=== PATIENT | female | born 1945 | race American Indian/Alaskan Native ===

== ENCOUNTER 2017-08-10 07:49 | Day surgery (SDC) | payer BC ==
[2017-08-10 08:45] VITALS: BMI 26.2
[2017-08-10 09:10] VITALS: O2SAT 100
[2017-08-10] MEDS ORDERED: Propofol 10 mg/ml Inj (20 ML) ONE (09:58)
--- NOTE | 2017-08-10 09:58 | CP.SDSHP ---
Same Day Surgery H & P - History Proposed Procedure: colonoscopy Pre-Op Diagnosis: Sigmoid obstruction, s/p resection and diverting ileostomy - Previous Medical/Surgical History Cardiac: Hypertension, Other (hyperlipidemia, ) Endocrine/Metabolic: Diabetes Misc: Other (Diverticulitis with Sigmoid stricture/inflammatory mass, ) Previous Surgical History: Emergency sigmoid resection and ileostomy. Lap Cholecystectomy. CECIL/BSO - Allergies Allergies: Allergies Penicillins Allergy (Intermediate, Verified 04/21/17 13:17) ITCHING - Physical Exam Vital Signs: Vital Signs 08/10/17 08:53 Temperature 97.6 F Pulse Rate 67 Respiratory 16 Rate Blood Pressure 106/57 L O2 Sat by Pulse 100 Oximetry Mental Status: Alert & Oriented x3 Neuro: WNL Heart: WNL Lungs: WNL GI: Other (RLQ ileostomy and midline incision well healed) - Impression Impression: Diverticulitis with emergency sigmoid resection/ileostomy Pt. Evaluated Today:Candidate for Anesthesia & Procedure: Yes - Date & Time Date: 08/10/17 Time: 10:00 Short Stay Discharge - Short Stay Discharge Admitting Diagnosis/Reason for Visit: DIVERTICULOSIS OF LARGE INT / PERSONAL HISTORY OF Disposition: HOME/ ROUTINE
[2017-08-10 10:46] VITALS: TEMP 97.1
[2017-08-10 11:50] VITALS: BP 125/52; PULSE 56; RESP 14
== END 2017-08-10 11:46 | disposition home or self-care (01) ==
LOC: C.ENDO 07:49
PROVIDERS: ATTEND Internal Medicine Gastroenterology
DX: K91.89 Other postprocedural complications and disorders of digestive system (principal); Y83.2 Surgical operation with anastomosis, bypass or graft as the cause of abnormal reaction of the patient, or of later complication, without mention of misadventure at the time of the procedure; K57.32 Diverticulitis of large intestine without perforation or abscess without bleeding; Z86.010 Personal history of colon polyps; E11.9 Type 2 diabetes mellitus without complications; E78.5 Hyperlipidemia, unspecified; I10 Essential (primary) hypertension; Z88.0 Allergy status to penicillin; K64.1 Second degree hemorrhoids
CPT/HCPCS: 45378; J2704

== ENCOUNTER 2017-10-25 05:54 | Day surgery (SDC) | payer MEDICARE, BC ==
[2017-10-25] MEDS ORDERED: Etomidate 20 mg/10ml Inj IV ONE (07:44)
[2017-10-25] MEDS ORDERED: Lactated Ringer's 1,000 ML IV ONE (07:45)
[2017-10-25] MEDS ORDERED: Propofol 10 mg/ml Inj (20 ML) ONE (07:51)
--- NOTE | 2017-10-25 08:49 | PCM.SURG1 ---
Surgeon's Initial Post Op Note - Surgeon's Notes Surgeon: Dr. Vaz [employer] Tobacco Processing Supervisor: Rae Norton, PGY2 Pre-Operative Diagnosis: Sigmoid stricture s/p colectomy and diverticulitis Operative Findings: stricture of the sigmoid colon at the prior anastamosis site , dilated to 58Fr by the end of the case Post-Operative Diagnosis: same Operation Performed: Rigid sigmoidoscopy with dilation of sigmoid at approximately 8cm Specimen/Specimens Removed: none Estimated Blood Loss: EBL {In ML}: 1 Date of Surgery/Procedure: 10/25/17 Time of Surgery/Procedure: 08:00
[2017-10-25 11:59] VITALS: BP 112/66; PULSE 67; RESP 18; TEMP 97.5; O2SAT 100
--- NOTE | 2017-10-25 12:45 | OP ---
PROCEDURE DATE: 10/25/2017 PREOPERATIVE DIAGNOSES: Anastomotic stenosis of low anterior resection, stenosis of anus and rectum. PROCEDURE CARRIED OUT: Rigid sigmoidoscopy and dilatation to 60 Estonian (2 cm with Gaines dilators). SURGEON: Etienne Vaz Jr., MD SCHOOL CLEANER: Dr. Norton. ANESTHESIOLOGIST: Mr. Cope. TYPE OF ANESTHESIA: Sedation converted to general anesthesia. INDICATIONS AND PROCEDURE: The patient is a 71-year-old woman who previously underwent a low anterior resection with ileostomy. Attempts were made at colonoscopy. There was a pinpoint hole and plan today was to attempt to dilate this. Initially I could not pass my finger through the anastomosis, but there was a pinhole opening. This was progressively dilated through a rigid sigmoidoscope and the anastomosis was approximately at 8 cm. Initially we passed a suction catheter through it and my finger. Then, we progressively dilated this using Gaines dilators up to 60-Estonian, which is 2 cm in size. At this point, I was able to pass my finger through the anastomosis. My recommendation is the patient undergo colonoscopy prior to closure of her ileostomy and she may need dilatation again, but at least we were able to establish a decent channel and this should be satisfactory. Etienne Vaz Jr., MD cc: MD Ameya Fraire MD
== END 2017-10-25 11:14 | disposition home or self-care (01) ==
LOC: C.SDS 05:54
PROVIDERS: ATTEND Surgery Vascular Surgery
DX: K62.4 Stenosis of anus and rectum (principal); K91.89 Other postprocedural complications and disorders of digestive system; Z87.19 Personal history of other diseases of the digestive system; Z90.49 Acquired absence of other specified parts of digestive tract; Z93.2 Ileostomy status; Y83.2 Surgical operation with anastomosis, bypass or graft as the cause of abnormal reaction of the patient, or of later complication, without mention of misadventure at the time of the procedure
CPT/HCPCS: 45910; J2001; J2704; J3010; J7120

== ENCOUNTER 2017-11-01 07:44 | Inpatient (IN) | payer MEDICARE, BC ==
[2017-11-01] MEDS ORDERED: Midazolam 2 MG/2 ML VIAL ONE (12:17)
[2017-11-01] MEDS ORDERED: Propofol 10 mg/ml Inj (20 ML) ONE (12:17)
[2017-11-01] MEDS ORDERED: Etomidate 20 mg/10ml Inj IV ONE (12:24)
[2017-11-01] MEDS ORDERED: metroNIDAZOLE IV 500 mg/100 ml 500 MG/100 ML BAG ONE (12:31)
[2017-11-01] MEDS ORDERED: ceFAZolin 1 gm in NS 0 GM/0 ML BAG IVPB ONE (12:31)
[2017-11-01] MEDS ORDERED: Ciprofloxacin 400mg/200ml D5W 400 MG/200 ML BAG IVPB ONE ×2 (12:33→20:00)
[2017-11-01] MEDS ORDERED: Neostigmine Methylsulfate 3mg/3ml Syringe IV ONE (13:40)
[2017-11-01] MEDS ORDERED: Oxycodone/Acetaminophen 5/325 mg Tab PO PRN (14:00)
[2017-11-01] MEDS ORDERED: Acetaminophen IV 1,000 MG in Premixed IV 1 EA IV PRN (14:05)
[2017-11-01] MEDS: HYDROmorphone 0.5 mg/0.5 ml ISec IVP PRN ×5 (14:17→15:29)
--- NOTE | 2017-11-01 14:17 | PCM.SURG1 ---
Surgeon's Initial Post Op Note - Surgeon's Notes Surgeon: Dr. Vaz Marine Safety Officer: Dr. Olivera PGy3; Pardeep Campo OMS III Type of Anesthesia: General Endo Anesthesia Administered By: Lenny Pre-Operative Diagnosis: Rectal Stenosis, Ileostomy Operative Findings: same Post-Operative Diagnosis: same Operation Performed: Rigid sigmoidoscopy with dilation. Closure of loop ileostomy. Small bowel resection Specimen/Specimens Removed: small bowel Estimated Blood Loss: EBL {In ML}: 10 Blood Products Given: N/A Drains Used: No Drains Post-Op Condition: Good Date of Surgery/Procedure: 11/01/17 Time of Surgery/Procedure: 14:17
[2017-11-01] MEDS ORDERED: Lactated Ringer's 1,000 ML IV ONE ×2 (15:30)
[2017-11-01] MEDS ORDERED: metroNIDAZOLE IV 500 mg/100 ml 500 MG/100 ML BAG IVPB ONE (20:00)
[2017-11-01] MEDS: Lactated Ringer's 1,000 ML IV SCH (21:35)
[2017-11-01 21:56] VITALS: RESP 20
[2017-11-02] MEDS: Lactated Ringer's 1,000 ML IV SCH (00:15)
[2017-11-02] MEDS: HYDROmorphone 0.5 mg/0.5 ml ISec IVP PRN ×5 (00:18→22:35)
[2017-11-02 07:01] LABS: BASO % 0.4 % (0.0-2.0); EOS % 0.6 % (0.0-4.0); HEMOGLOBIN 9.5 g/dL (11.0-16.0); LYMPH # 1.1 K/uL (1.0-4.3); MEAN CELL VOLUME 89.1 fL (81.0-99.0); MEAN CORPUSCULAR HGB CONC 33.7 g/dL (33.0-37.0); MEAN PLATELET VOLUME 10.1 fL (7.2-11.7); MONO # 0.4 K/uL (0.0-0.8); NEUT # 5.8 K/uL (1.8-7.0); RBC 3.17 Mil/uL (3.80-5.20); RED CELL DISTRIBUTION WIDTH 12.8 % (11.5-14.5); WHITE BLOOD COUNT 7.5 K/uL (4.8-10.8)
--- NOTE | 2017-11-02 07:11 | OP ---
PROCEDURE DATE: 11/01/2017 PREOPERATIVE DIAGNOSIS: Status post ileostomy. PROCEDURE CARRIED OUT: Sigmoidoscopy, rectal dilatation with Gaines dilators, and closure of loop ileostomy, small bowel resection with anastomosis. SURGEON: Etienne Vaz Jr., MD GRAPHIC ILLUSTRATOR: Dr. Olivera. ANESTHESIA ADMINISTERED BY: Dr. Galvez. DESCRIPTION OF PROCEDURE: The patient is an older middle aged woman with a history of severe diverticulitis disease, underwent low anterior resection, and need a stapled anastomosis, who past week underwent rectal dilation to 60-Taiwanese. Today, she is re-admitted for closure. Prior to initiating the procedure, we carried out rectal dilatation and sigmoidoscopy again. At the beginning, I was easily able to place my finger through the anastomosis, but still I felt it was better to dilate this as large as we could, prior to reconnecting the ileostomy. After this has been carried out, the patient was in lithotomy position. This was carried out. We then placed the patient in a standard supine position, dissected out the small bowel that was coming up to the ileostomy, and anastomosed this in a [id number] fashion, placed it back in peritoneal cavity, closed the skin and fascia above this, and terminated the procedure. Blood loss to the procedure was less than 150 mL. The operation carried out was sigmoidoscopy, rectal dilatation, and two closure of loop ileostomies, small bowel resection with anastomosis. Etienne Vaz Jr., MD cc: Quin Spencer MD
[2017-11-02 07:28] LABS: ALBUMIN 3.2 g/dL (3.5-5.0); CALCIUM 8.6 mg/dl (8.6-10.4)
--- NOTE | 2017-11-02 09:09 | CP.PCM.PN ---
Subjective - Date & Time of Evaluation Date of Evaluation: 11/02/17 Time of Evaluation: 09:07 - Subjective Subjective: Surgery: Dr. Vaz Patient reports some pain to the incision site. She denies n/v/f/c. She has not been OOB this am. Per nursing no acute events overnight. Objective - Vital Signs/Intake and Output Vital Signs (last 24 hours): Temp Pulse Resp BP Pulse Ox 98.8 F 71 20 135/63 100 11/02/17 07:00 11/02/17 07:00 11/02/17 07:00 11/02/17 07:00 11/02/17 07:00 Intake and Output: 11/02/17 11/02/17 06:59 18:59 Intake Total 400 800 Output Total 650 600 Balance -250 200 - Medications Medications: Current Medications Enoxaparin Sodium (Lovenox) 40 mg SC DAILY [facility] Ferrous Sulfate (Feosol) 325 mg PO TID [facility] (Dorzolamide 2%/Timolol 0.5% [Cosopt 2%-0.5% Opht]) 1 drop OU HS [facility] (Valsartan/Hydrochlorothiazide [Diovan Hct 160-12.5 Mg Tab]) 1 tab PO DAILY [facility] Hydromorphone HCl (Dilaudid) 0.5 mg IVP Q3H PRN PRN Reason: Pain, moderate (4-7) Stop: 11/03/17 14:01 Last Admin: 11/02/17 05:05 Dose: 0.5 mg Acetaminophen (Ofirmev) 100 mls @ 400 mls/hr IV Q6 PRN PRN Reason: Pain, moderate (4-7) Stop: 11/02/17 14:06 Last Admin: 11/01/17 14:24 Dose: 200 mls Potassium Chloride/Dextrose/Sod Cl (Potassium Chl 20 Meq In D5-1/2ns) 1,000 mls @ 100 mls/hr IV .Q10H [facility] Latanoprost (Xalatan Opht) ml OU DAILY [facility] Ondansetron HCl (Zofran Inj) 4 mg IVP Q6 PRN PRN Reason: Nausea/Vomiting Oxycodone/Acetaminophen (Percocet 5/325 Mg Tab) 1 tab PO Q4 PRN PRN Reason: Pain, Mild (1-3) Stop: 11/04/17 14:01 Rosuvastatin Calcium (Crestor) 10 mg PO HS [facility] - Labs Labs: 11/02/17 06:47 11/02/17 06:47 - Constitutional Appears: Non-toxic, No Acute Distress - Head Exam Head Exam: ATRAUMATIC, NORMOCEPHALIC - Eye Exam Eye Exam: EOMI, Normal appearance - ENT Exam ENT Exam: Mucous Membranes Moist - Respiratory Exam Respiratory Exam: NORMAL BREATHING PATTERN. absent: Respiratory Distress - Cardiovascular Exam Cardiovascular Exam: REGULAR RHYTHM. absent: Tachycardia - GI/Abdominal Exam GI & Abdominal Exam: Soft, Tenderness (kobi-incisional, appropriate). absent: Guarding, Rebound - Extremities Exam Extremities Exam: Normal Inspection. absent: Calf Tenderness Assessment and Plan - Assessment and Plan (Free Text) Assessment: 71 y/o female s/p loop ileostomy closure POD1 Plan: -ok for CLD, sip slowly as tolerated -OOB today ambulating -PO pain medications -d/c wayne -restart home meds -ok for DVt chemoppx -incentive spirometry use -monitor for bowel function -seen and examined with Dr. Татьяна Henderson PGY3
[2017-11-02] MEDS ORDERED: Enoxaparin 40 mg Syringe SC SCH (10:00)
[2017-11-02] MEDS: Potassium Ch 20mEq in D5-1/2NS 1,000 ML IV SCH ×2 (10:15→18:52)
--- NOTE | 2017-11-02 11:59 | CP.PCM.CON ---
History of Present Illness - History of Present Illness History of Present Illness: Patient is post reversal of an ileostome. Previous surgery done monthe ago foe a divercular abscess. Patient went into CHF and renal failure post -op because ofd sepsis. Patient did well afdter this and so she was able to undeergo the procedure. Review of Systems - Constitutional Additional comments: Negative. - EENT Additional comments: Negative - Cardiovascular Additional comments: History of CHF. now resolved. - Respiratory Additional comments: No SOB. - Gastrointestinal Gastrointestinal: As Per HPI - Genitourinary Additional comments: Negative. - Reproductive: Female Reproductive:Female: Menopausal Past Patient History - Past Medical History & Family History Past Medical History?: Yes - Past Social History Smoking Status: Former Smoker Alcohol: None Home Situation {Lives}: With Family - CARDIAC Hx Cardiac Disorders: Yes Hx Congestive Heart Failure: Yes Hx Hypercholesterolemia: Yes Hx Hypertension: Yes - PULMONARY Hx Respiratory Disorders: Yes Other/Comment: HX: LEFT PLEURAL EFFUSION/ATELECTASIS-CHEST TUBE PLACED 04/2017-S /P ILEOSTOMY/COLON RESECTION - NEUROLOGICAL Hx Neurological Disorder: No - HEENT Hx HEENT Problems: Yes Hx Cataracts: Yes Hx Glaucoma: Yes - RENAL Hx Chronic Kidney Disease: Yes Hx Renal Failure: Yes - ENDOCRINE/METABOLIC Hx Endocrine Disorders: No Other/Comment: Prediabetes - HEMATOLOGICAL/ONCOLOGICAL Hx Blood Disorders: Yes Hx Anemia: Yes Hx Blood Transfusions: Yes Hx Blood Transfusion Reaction: No - INTEGUMENTARY Hx Dermatological Problems: No - MUSCULOSKELETAL/RHEUMATOLOGICAL Hx Musculoskeletal Disorders: No Hx Falls: No - GASTROINTESTINAL Hx Gastrointestinal Disorders: Yes Hx Bowel Surgery: Yes Hx Diverticulitis: Yes Hx Gall Bladder Disease: Yes (S/P Lap GB) Hx Gastroesophageal Reflux: Yes Hx Hemorrhoids: Yes Hx Ileostomy: Yes Other/Comment: Sigmoid stricture from diverticulosis, attempted colonoscopy 2016. h/o colonic polyps last full exam 2011. HX: SEVERE SIGMOID STRICTURE. HX: COLON RESECTION/ILEOSTOMY - GENITOURINARY/GYNECOLOGICAL Hx Genitourinary Disorders: Yes Other/Comment: HX: FIBROID UTERUS. h/o uti. treated by with bactrim. cleared by dr. bennett no further orders given - PSYCHIATRIC Hx Psychophysiologic Disorder: No Hx Substance Use: No - SURGICAL HISTORY Hx Surgeries: Yes Hx Cataract Extraction: Yes (BILAT.) Hx Cholecystectomy: Yes Hx Eye Surgery: Yes (FOR GLUCOMA) Hx Hysterectomy: Yes Other/Comment: HX:PARTIAL COLECTOMY/ ILEOSTOMY. HX: CYSTO WITH STENT PLACED PRIOR TO COLON RESECTION PRECAUTION SIGMOIDOSCOPY - ANESTHESIA Hx Anesthesia: Yes Hx Anesthesia Reactions: No Hx Malignant Hyperthermia: No Has any member of the family had a problem w/ anesthesia?: No Meds Allergies/Adverse Reactions: Allergies Allergy/AdvReac Type Severity Reaction Status Date / Time Penicillins Allergy Intermediate ITCHING Verified 04/21/17 13:17 - Medications Medications: Current Medications Dorzolamide HCl (Trusopt) 0 ml OU HS [facility] Ferrous Sulfate (Feosol) 325 mg PO TID [facility] Last Admin: 11/02/17 10:04 Dose: 325 mg Heparin Sodium (Porcine) (Heparin) 5,000 units SC Q8 [facility] Hydrochlorothiazide (Microzide) 12.5 mg PO DAILY [facility] Last Admin: 11/02/17 10:04 Dose: 12.5 mg Hydromorphone HCl (Dilaudid) 0.5 mg IVP Q3H PRN PRN Reason: Pain, moderate (4-7) Stop: 11/03/17 14:01 Last Admin: 11/02/17 10:01 Dose: 0.5 mg Acetaminophen (Ofirmev) 100 mls @ 400 mls/hr IV Q6 PRN PRN Reason: Pain, moderate (4-7) Stop: 11/02/17 14:06 Last Admin: 11/01/17 14:24 Dose: 200 mls Potassium Chloride/Dextrose/Sod Cl (Potassium Chl 20 Meq In D5-1/2ns) 1,000 mls @ 100 mls/hr IV .Q10H [facility] Last Admin: 11/02/17 10:15 Dose: 100 mls/hr Latanoprost (Xalatan Opht) 0 ml OU HS [facility] Losartan Potassium (Cozaar) 100 mg PO DAILY [facility] Last Admin: 11/02/17 10:04 Dose: 100 mg Ondansetron HCl (Zofran Inj) 4 mg IVP Q6 PRN PRN Reason: Nausea/Vomiting Oxycodone/Acetaminophen (Percocet 5/325 Mg Tab) 1 tab PO Q4 PRN PRN Reason: Pain, Mild (1-3) Stop: 11/04/17 14:01 Rosuvastatin Calcium (Crestor) 10 mg PO HS [facility] Timolol Maleate (Timoptic 0.5% Ophth Soln) 0 drop OU BID [facility] Last Admin: 11/02/17 11:00 Dose: Not Given Physical Exam - Constitutional Appears: Non-toxic, No Acute Distress - Head Exam Head Exam: ATRAUMATIC, NORMAL INSPECTION, NORMOCEPHALIC - Eye Exam Pupil Exam: PERRL - ENT Exam ENT Exam: Mucous Membranes Moist, Normal External Ear Exam - Neck Exam Neck exam: Positive for: Full Rom - Respiratory Exam Respiratory Exam: Clear to Auscultation Bilateral, NORMAL BREATHING PATTERN - Cardiovascular Exam Cardiovascular Exam: REGULAR RHYTHM, +S1, +S2 - GI/Abdominal Exam GI & Abdominal Exam: Hypoactive Bowel Sounds - Rectal Exam Rectal Exam: Deferred - Extremities Exam Extremities exam: Positive for: full ROM - Back Exam Back exam: FULL ROM, NORMAL INSPECTION - Neurological Exam Neurological exam: Alert, Oriented x3 - Psychiatric Exam Psychiatric exam: Normal Affect, Normal Mood - Skin Skin Exam: Dry, Intact, Warm Results - Vital Signs Recent Vital Signs: Last Vital Signs Temp 98.8 F 11/02/17 07:00 Pulse 71 11/02/17 07:00 Resp 20 11/02/17 07:00 BP 135/63 11/02/17 07:00 Pulse Ox 100 11/02/17 07:00 - Labs Result Diagrams: 11/02/17 06:47 11/02/17 06:47 Labs: Laboratory Results - last 24 hr 11/01/17 11/02/17 11/02/17 12:17 06:47 06:47 WBC 7.5 RBC 3.17 L Hgb 9.5 L Hct 28.3 L MCV 89.1 D MCH 30.0 MCHC 33.7 RDW 12.8 Plt Count 243 D MPV 10.1 Neut % (Auto) 78.0 H Lymph % (Auto) 15.0 L [place] % (Auto) 6.0 Eos % (Auto) 0.6 Baso % (Auto) 0.4 Neut # (Auto) 5.8 Lymph # (Auto) 1.1 Republic # (Auto) 0.4 Eos # (Auto) 0.0 Baso # (Auto) 0.0 Sodium 143 Potassium 3.7 Chloride 113 H Carbon Dioxide 19 L Anion Gap 15 BUN 26 H Creatinine 1.8 H Est GFR ( Amer) 34 Est GFR (Non-Af Amer) 28 Random Glucose 96 Calcium 8.6 Total Bilirubin 0.5 AST 23 ALT 21 Alkaline Phosphatase 48 Total Protein 6.3 Albumin 3.2 L Globulin 3.1 Albumin/Globulin Ratio 1.0 Blood Type A NEGATIVE Antibody Screen Positive Antibody Identification Anti D Assessment & Plan - Assessment and Plan (Free Text) Assessment: Assessment: S/P reversal of ileostome. Prediabetes. HX of CHF and renal failure. Plan: Plan: Continue present treatment.
[2017-11-02] MEDS: Dorzolamide 2% Opht Sol 10ml OU SCH (22:23)
[2017-11-02] MEDS: Latanoprost 2.5 ml Opht Soln OU SCH (22:23)
[2017-11-03] MEDS: HYDROmorphone 0.5 mg/0.5 ml ISec IVP PRN ×2 (06:35→13:54)
[2017-11-03 07:14] LABS: HEMOGLOBIN 9.2 g/dL (11.0-16.0); MEAN CORPUSCULAR HEMOGLOBIN 29.6 pg (27.0-31.0); MEAN CORPUSCULAR HGB CONC 33.2 g/dL (33.0-37.0); MEAN PLATELET VOLUME 10.3 fL (7.2-11.7); RBC 3.1 Mil/uL (3.80-5.20); RED CELL DISTRIBUTION WIDTH 12.7 % (11.5-14.5); WHITE BLOOD COUNT 7.4 K/uL (4.8-10.8)
[2017-11-03 07:18] LABS: CALCIUM 8.4 mg/dl (8.6-10.4)
[2017-11-03] MEDS: Potassium Ch 20mEq in D5-1/2NS 1,000 ML IV SCH ×2 (09:57→15:49)
--- NOTE | 2017-11-03 10:48 | CP.PCM.PN ---
Subjective - Date & Time of Evaluation Date of Evaluation: 11/03/17 Time of Evaluation: 10:45 - Subjective Subjective: General Surgery Consult Note for Dr. Vaz This 71F was seen and examined this Am in a chair. No acute events reported overnight. Patient tolerating liquid diet. Denies BM, denies flatus, denies chest pain, SOB, leg pain, fevers or chills. Objective - Vital Signs/Intake and Output Vital Signs (last 24 hours): Temp Pulse Resp BP Pulse Ox 98.1 F 79 20 116/57 L 98 11/03/17 07:27 11/03/17 07:27 11/03/17 07:27 11/03/17 07:27 11/03/17 07:27 Intake and Output: 11/03/17 11/03/17 06:59 18:59 Intake Total 800 800 Output Total 600 Balance 800 200 - Medications Medications: Current Medications Dorzolamide HCl (Trusopt) 0 ml OU HS [facility] Last Admin: 11/02/17 22:23 Dose: 1 drop Ferrous Sulfate (Feosol) 325 mg PO TID [facility] Last Admin: 11/03/17 09:53 Dose: 325 mg Heparin Sodium (Porcine) (Heparin) 5,000 units SC Q8 [facility] Last Admin: 11/03/17 06:32 Dose: 5,000 units Hydrochlorothiazide (Microzide) 12.5 mg PO DAILY [facility] Last Admin: 11/03/17 09:53 Dose: 12.5 mg Hydromorphone HCl (Dilaudid) 0.5 mg IVP Q3H PRN PRN Reason: Pain, moderate (4-7) Stop: 11/03/17 14:01 Last Admin: 11/03/17 06:35 Dose: 0.5 mg Potassium Chloride/Dextrose/Sod Cl (Potassium Chl 20 Meq In D5-1/2ns) 1,000 mls @ 100 mls/hr IV .Q10H [facility] Last Admin: 11/03/17 09:57 Dose: 100 mls/hr Latanoprost (Xalatan Opht) 0 ml OU HS [facility] Last Admin: 11/02/17 22:23 Dose: 2.5 ml Losartan Potassium (Cozaar) 100 mg PO DAILY [facility] Last Admin: 11/03/17 09:53 Dose: 100 mg Ondansetron HCl (Zofran Inj) 4 mg IVP Q6 PRN PRN Reason: Nausea/Vomiting Oxycodone/Acetaminophen (Percocet 5/325 Mg Tab) 1 tab PO Q4 PRN PRN Reason: Pain, Mild (1-3) Stop: 11/04/17 14:01 Rosuvastatin Calcium (Crestor) 10 mg PO HS [facility] Last Admin: 11/02/17 22:18 Dose: 10 mg Timolol Maleate (Timoptic 0.5% Ophth Soln) 0 drop OU BID [facility] Last Admin: 11/03/17 09:53 Dose: 1 drop - Labs Labs: 11/03/17 06:47 11/03/17 06:47 - Constitutional Appears: Non-toxic, No Acute Distress - Head Exam Head Exam: ATRAUMATIC, NORMOCEPHALIC - Eye Exam Eye Exam: EOMI - Respiratory Exam Respiratory Exam: NORMAL BREATHING PATTERN - Cardiovascular Exam Cardiovascular Exam: REGULAR RHYTHM, +S1, +S2 - GI/Abdominal Exam GI & Abdominal Exam: Soft. absent: Guarding, Rigid Additional comments: Localized tenderness cephalad to wound. Dressing clean dry and intact. - Neurological Exam Neurological Exam: Alert, Awake - Psychiatric Exam Psychiatric exam: Normal Affect, Normal Mood - Skin Skin Exam: Dry, Intact Assessment and Plan - Assessment and Plan (Free Text) Assessment: 71 y/o female s/p loop ileostomy closure POD2 Plan: -Tolerating clears -OOB today ambulating -PO pain medications -restart home meds -HSQ for dvt ppx -incentive spirometry -monitor for bowel function -D/W Dr. Татьяна August PGY2
--- NOTE | 2017-11-03 11:30 | CP.PCM.PN ---
Subjective - Date & Time of Evaluation Date of Evaluation: 11/03/17 Time of Evaluation: 11:30 - Subjective Subjective: 2nd day post-op. Afebrile. Patient still withpouit flatus. On clear liquid diet nad IV Fluids. Objective - Vital Signs/Intake and Output Vital Signs (last 24 hours): Temp Pulse Resp BP Pulse Ox 98.1 F 79 20 116/57 L 98 11/03/17 07:27 11/03/17 07:27 11/03/17 07:27 11/03/17 07:27 11/03/17 07:27 Intake and Output: 11/03/17 11/03/17 06:59 18:59 Intake Total 800 800 Output Total 600 Balance 800 200 - Medications Medications: Current Medications Dorzolamide HCl (Trusopt) 0 ml OU HS [facility] Last Admin: 11/02/17 22:23 Dose: 1 drop Ferrous Sulfate (Feosol) 325 mg PO TID [facility] Last Admin: 11/03/17 09:53 Dose: 325 mg Heparin Sodium (Porcine) (Heparin) 5,000 units SC Q8 [facility] Last Admin: 11/03/17 06:32 Dose: 5,000 units Hydrochlorothiazide (Microzide) 12.5 mg PO DAILY [facility] Last Admin: 11/03/17 09:53 Dose: 12.5 mg Hydromorphone HCl (Dilaudid) 0.5 mg IVP Q3H PRN PRN Reason: Pain, moderate (4-7) Stop: 11/03/17 14:01 Last Admin: 11/03/17 06:35 Dose: 0.5 mg Potassium Chloride/Dextrose/Sod Cl (Potassium Chl 20 Meq In D5-1/2ns) 1,000 mls @ 100 mls/hr IV .Q10H [facility] Last Admin: 11/03/17 09:57 Dose: 100 mls/hr Latanoprost (Xalatan Opht) 0 ml OU HS [facility] Last Admin: 11/02/17 22:23 Dose: 2.5 ml Losartan Potassium (Cozaar) 100 mg PO DAILY [facility] Last Admin: 11/03/17 09:53 Dose: 100 mg Ondansetron HCl (Zofran Inj) 4 mg IVP Q6 PRN PRN Reason: Nausea/Vomiting Oxycodone/Acetaminophen (Percocet 5/325 Mg Tab) 1 tab PO Q4 PRN PRN Reason: Pain, Mild (1-3) Stop: 11/04/17 14:01 Rosuvastatin Calcium (Crestor) 10 mg PO HS [facility] Last Admin: 11/02/17 22:18 Dose: 10 mg Timolol Maleate (Timoptic 0.5% Ophth Soln) 0 drop OU BID [facility] Last Admin: 11/03/17 09:53 Dose: 1 drop - Labs Labs: 11/03/17 06:47 11/03/17 06:47 - Constitutional Appears: Non-toxic, No Acute Distress - Head Exam Head Exam: ATRAUMATIC, NORMAL INSPECTION, NORMOCEPHALIC - Eye Exam Eye Exam: EOMI, Normal appearance Pupil Exam: PERRL - Neck Exam Neck Exam: Full ROM - Respiratory Exam Respiratory Exam: Clear to Ausculation Bilateral, NORMAL BREATHING PATTERN - Cardiovascular Exam Cardiovascular Exam: REGULAR RHYTHM, +S1, +S2 - GI/Abdominal Exam GI & Abdominal Exam: Tenderness - Rectal Exam Rectal Exam: Deferred - Extremities Exam Extremities Exam: Full ROM, Normal Inspection - Back Exam Back Exam: Full ROM - Neurological Exam Neurological Exam: Alert, Awake, Oriented x3 - Psychiatric Exam Psychiatric exam: Normal Affect, Normal Mood - Skin Skin Exam: Dry, Intact, Normal Color Assessment and Plan - Assessment and Plan (Free Text) Assessment: Assessment: S/P reversal of an ileostomy. CAD Prediabetes. HTN Plan: Plan: Continue clear fluids and IV fuids. Chest X-ray today.
--- NOTE | 2017-11-03 11:52 | RAD ---
HISTORY: hx of chf with pleural effusion COMPARISON: Chest radiograph dated 05/08/2017. FINDINGS: LUNGS: No active pulmonary disease. PLEURA: No significant pleural effusion identified, no pneumothorax apparent. CARDIOVASCULAR: Atherosclerotic aortic calcifications. Cardiomediastinal silhouette within normal limits. OSSEOUS STRUCTURES: Unchanged. VISUALIZED UPPER ABDOMEN: Right upper quadrant surgical clips. OTHER FINDINGS: None. IMPRESSION: No active disease.
[2017-11-03] MEDS: Latanoprost 2.5 ml Opht Soln OU SCH (21:32)
[2017-11-03] MEDS: Dorzolamide 2% Opht Sol 10ml OU SCH (21:32)
[2017-11-04] MEDS: Potassium Ch 20mEq in D5-1/2NS 1,000 ML IV SCH (01:15)
[2017-11-04 06:30] LABS: HEMOGLOBIN 8.7 g/dL (11.0-16.0); MEAN CELL VOLUME 89.1 fL (81.0-99.0); MEAN CORPUSCULAR HEMOGLOBIN 30.3 pg (27.0-31.0); MEAN PLATELET VOLUME 9.7 fL (7.2-11.7); RBC 2.88 Mil/uL (3.80-5.20); WHITE BLOOD COUNT 7.3 K/uL (4.8-10.8)
[2017-11-04 08:05] LABS: CALCIUM 8.5 mg/dl (8.6-10.4)
--- NOTE | 2017-11-04 10:12 | CP.PCM.PN ---
Subjective - Date & Time of Evaluation Date of Evaluation: 11/04/17 Time of Evaluation: 06:50 - Subjective Subjective: Surgery- Dr. Vaz Pt seen and examined at bedside this AM. No acute events overnight. Appropriately tender around incision. Passed flatus, denies BM. +OOB. Denies Fevers, chills, nausea, vomiting, diarrhea, chest pain, shortness of breath Objective - Vital Signs/Intake and Output Vital Signs (last 24 hours): Temp Pulse Resp BP Pulse Ox 98.6 F 74 20 124/60 100 11/04/17 08:14 11/04/17 08:14 11/04/17 08:14 11/04/17 08:14 11/04/17 08:14 Intake and Output: 11/04/17 11/04/17 06:59 18:59 Intake Total 1180 920 Balance 1180 920 - Medications Medications: Current Medications Dorzolamide HCl (Trusopt) 0 ml OU HS [facility] Last Admin: 11/03/17 21:32 Dose: 1 drop Ferrous Sulfate (Feosol) 325 mg PO TID [facility] Last Admin: 11/04/17 09:58 Dose: 325 mg Heparin Sodium (Porcine) (Heparin) 5,000 units SC Q8 [facility] Last Admin: 11/04/17 05:57 Dose: 5,000 units Hydrochlorothiazide (Microzide) 12.5 mg PO DAILY [facility] Last Admin: 11/04/17 09:58 Dose: 12.5 mg Latanoprost (Xalatan Opht) 0 ml OU HS [facility] Last Admin: 11/03/17 21:32 Dose: 2.5 ml Losartan Potassium (Cozaar) 100 mg PO DAILY [facility] Last Admin: 11/04/17 09:58 Dose: 100 mg Ondansetron HCl (Zofran Inj) 4 mg IVP Q6 PRN PRN Reason: Nausea/Vomiting Oxycodone/Acetaminophen (Percocet 5/325 Mg Tab) 1 tab PO Q4 PRN PRN Reason: Pain, Mild (1-3) Stop: 11/04/17 14:01 Rosuvastatin Calcium (Crestor) 10 mg PO HS [facility] Last Admin: 11/03/17 21:33 Dose: 10 mg Timolol Maleate (Timoptic 0.5% Ophth Soln) 0 drop OU BID [facility] Last Admin: 11/04/17 09:58 Dose: 1 drop - Labs Labs: 11/04/17 06:20 11/04/17 06:20 - Constitutional Appears: Non-toxic, No Acute Distress - Eye Exam Eye Exam: EOMI. absent: Scleral icterus - ENT Exam ENT Exam: Mucous Membranes Moist - Respiratory Exam Respiratory Exam: NORMAL BREATHING PATTERN. absent: Accessory Muscle Use, Respiratory Distress - GI/Abdominal Exam GI & Abdominal Exam: Soft. absent: Distended, Firm, Guarding, Rigid, Tenderness Additional comments: Incision RLQ. Dressing changed at bedside. Incision c/D/I - Extremities Exam Extremities Exam: absent: Calf Tenderness - Neurological Exam Neurological Exam: Alert, Awake, Oriented x3 - Psychiatric Exam Psychiatric exam: Normal Affect - Skin Skin Exam: Intact, Warm Assessment and Plan - Assessment and Plan (Free Text) Assessment: 71F s/p ileostomy reversal POD3 Plan: -advance to full liquid diet -Encourage OOB & IC use -Pain control PRN -monitor for bowel function -discussed w/ Dr. Vaz surgical attending [email or web address]
--- NOTE | 2017-11-04 11:10 | CP.PCM.PN ---
Subjective - Date & Time of Evaluation Date of Evaluation: 11/04/17 Time of Evaluation: 11:05 - Subjective Subjective: [id number]. Patient passed out some flatus yesterday. No BM so far. No bleeding from the operative site.. Objective - Vital Signs/Intake and Output Vital Signs (last 24 hours): Temp Pulse Resp BP Pulse Ox 98.6 F 74 20 124/60 100 11/04/17 08:14 11/04/17 08:14 11/04/17 08:14 11/04/17 08:14 11/04/17 08:14 Intake and Output: 11/04/17 11/04/17 06:59 18:59 Intake Total 1180 920 Balance 1180 920 - Medications Medications: Current Medications Dorzolamide HCl (Trusopt) 0 ml OU HS [facility] Last Admin: 11/03/17 21:32 Dose: 1 drop Ferrous Sulfate (Feosol) 325 mg PO TID [facility] Last Admin: 11/04/17 09:58 Dose: 325 mg Heparin Sodium (Porcine) (Heparin) 5,000 units SC Q8 [facility] Last Admin: 11/04/17 05:57 Dose: 5,000 units Hydrochlorothiazide (Microzide) 12.5 mg PO DAILY [facility] Last Admin: 11/04/17 09:58 Dose: 12.5 mg Latanoprost (Xalatan Opht) 0 ml OU HS [facility] Last Admin: 11/03/17 21:32 Dose: 2.5 ml Losartan Potassium (Cozaar) 100 mg PO DAILY [facility] Last Admin: 11/04/17 09:58 Dose: 100 mg Ondansetron HCl (Zofran Inj) 4 mg IVP Q6 PRN PRN Reason: Nausea/Vomiting Oxycodone/Acetaminophen (Percocet 5/325 Mg Tab) 1 tab PO Q4 PRN PRN Reason: Pain, Mild (1-3) Stop: 11/04/17 14:01 Rosuvastatin Calcium (Crestor) 10 mg PO HS [facility] Last Admin: 11/03/17 21:33 Dose: 10 mg Timolol Maleate (Timoptic 0.5% Ophth Soln) 0 drop OU BID [facility] Last Admin: 11/04/17 09:58 Dose: 1 drop - Labs Labs: 11/04/17 06:20 11/04/17 06:20 - Constitutional Appears: Well, Non-toxic, No Acute Distress - Head Exam Head Exam: ATRAUMATIC, NORMAL INSPECTION, NORMOCEPHALIC - Eye Exam Pupil Exam: PERRL - Neck Exam Neck Exam: Full ROM - Respiratory Exam Respiratory Exam: Clear to Ausculation Bilateral, NORMAL BREATHING PATTERN - Cardiovascular Exam Cardiovascular Exam: REGULAR RHYTHM, +S1, +S2, Murmur - GI/Abdominal Exam GI & Abdominal Exam: Tenderness - Rectal Exam Rectal Exam: Deferred - Back Exam Back Exam: Full ROM, NORMAL INSPECTION - Neurological Exam Neurological Exam: Alert, Awake, Oriented x3 - Psychiatric Exam Psychiatric exam: Normal Affect, Normal Mood - Skin Skin Exam: Dry, Intact, Warm Assessment and Plan - Assessment and Plan (Free Text) Assessment: Assessment: S/P reversal of an ileostomy. Renal insufficiency Hyperlipidemia. Plan: Plan: Advance diet to soft.
[2017-11-04] MEDS: Dorzolamide 2% Opht Sol 10ml OU SCH (21:22)
[2017-11-04] MEDS: Latanoprost 2.5 ml Opht Soln OU SCH (21:23)
[2017-11-05] MEDS ORDERED: Oxycodone/Acetaminophen 5/325 mg Tab PO ONE (01:02)
--- NOTE | 2017-11-05 08:16 | CP.PCM.PN ---
Subjective - Date & Time of Evaluation Date of Evaluation: 11/05/17 Time of Evaluation: 08:12 - Subjective Subjective: PGY-1 surgery progress note for Dr Vaz. No acute events noted overnight. Patient passing gas and had a normal appearing bowel movement. She stated her pain has improved. She denied chest pain, shortness of breath, fever, chills. Objective - Vital Signs/Intake and Output Vital Signs (last 24 hours): Temp Pulse Resp BP Pulse Ox 98.9 F 75 20 109/60 98 11/05/17 08:03 11/05/17 08:03 11/05/17 08:03 11/05/17 08:03 11/05/17 08:03 Intake and Output: 11/05/17 11/05/17 06:59 18:59 Intake Total 420 Balance 420 - Medications Medications: Current Medications Dorzolamide HCl (Trusopt) 0 ml OU HS [facility] Last Admin: 11/04/17 21:22 Dose: 1 drop Ferrous Sulfate (Feosol) 325 mg PO TID [facility] Last Admin: 11/04/17 18:07 Dose: 325 mg Heparin Sodium (Porcine) (Heparin) 5,000 units SC Q8 [facility] Last Admin: 11/05/17 06:09 Dose: 5,000 units Hydrochlorothiazide (Microzide) 12.5 mg PO DAILY [facility] Last Admin: 11/04/17 09:58 Dose: 12.5 mg Latanoprost (Xalatan Opht) 0 ml OU HS [facility] Last Admin: 11/04/17 21:23 Dose: 2.5 ml Losartan Potassium (Cozaar) 100 mg PO DAILY [facility] Last Admin: 11/04/17 09:58 Dose: 100 mg Ondansetron HCl (Zofran Inj) 4 mg IVP Q6 PRN PRN Reason: Nausea/Vomiting Rosuvastatin Calcium (Crestor) 10 mg PO HS [facility] Last Admin: 11/04/17 21:21 Dose: 10 mg Timolol Maleate (Timoptic 0.5% Ophth Soln) 0 drop OU BID [facility] Last Admin: 11/04/17 18:22 Dose: 1 drop - Labs Labs: 11/04/17 06:20 11/04/17 06:20 - Additional Findings Additional findings: - Constitutional Appears: Non-toxic, No Acute Distress - Eye Exam Eye Exam: EOMI. absent: Scleral icterus - ENT Exam ENT Exam: Mucous Membranes Moist - Respiratory Exam Respiratory Exam: NORMAL BREATHING PATTERN. absent: Accessory Muscle Use, Respiratory Distress - GI/Abdominal Exam GI & Abdominal Exam: Soft. absent: Distended, Firm, Guarding, Rigid, Tenderness Additional comments: Incision RLQ. Incision c/D/I - Extremities Exam Extremities Exam: absent: Calf Tenderness - Neurological Exam Neurological Exam: Alert, Awake, Oriented x3 - Psychiatric Exam Psychiatric exam: Normal Affect - Skin Skin Exam: Intact, Warm Assessment and Plan - Assessment and Plan (Free Text) Assessment: 71F s/p ileostomy reversal POD3 Plan: -advance diet -Encourage OOB & IC use -Pain control with tylenol PO PRN -Now having bowel movements -No further surgical intervention necessary at this time. Surgery will sign off. -discussed w/ Dr. Vaz surgical attending
[2017-11-05 08:18] LABS: HEMOGLOBIN 8.3 g/dL (11.0-16.0); MEAN CELL VOLUME 89.9 fL (81.0-99.0); MEAN CORPUSCULAR HEMOGLOBIN 30.1 pg (27.0-31.0); MEAN CORPUSCULAR HGB CONC 33.5 g/dL (33.0-37.0); MEAN PLATELET VOLUME 10.6 fL (7.2-11.7); RBC 2.76 Mil/uL (3.80-5.20); RED CELL DISTRIBUTION WIDTH 12.8 % (11.5-14.5); WHITE BLOOD COUNT 6.2 K/uL (4.8-10.8)
[2017-11-05 08:27] LABS: CALCIUM 8.8 mg/dl (8.6-10.4)
--- NOTE | 2017-11-05 09:14 | CP.PCM.DIS ---
Provider - Provider Date of Admission: 11/01/17 14:00 Attending physician: Etienne Vaz Jr, MD Primary care physician: PMD: Dr Sanchez Consults: Medicine - Dr Sanchez (PMD) Time Spent in preparation of Discharge (in minutes): 33 Diagnosis - Discharge Diagnosis (1) S/P small bowel resection Status: Acute Priority: High Hospital Course - Lab Results Lab Results: Most Recent Lab Values WBC 6.2 K/uL (4.8-10.8) 11/05/17 07:59 RBC 2.76 Mil/uL (3.80-5.20) L 11/05/17 07:59 Hgb 8.3 g/dL (11.0-16.0) L 11/05/17 07:59 Hct 24.8 % (34.0-47.0) L 11/05/17 07:59 MCV 89.9 fL (81.0-99.0) 11/05/17 07:59 MCH 30.1 pg (27.0-31.0) 11/05/17 07:59 MCHC 33.5 g/dL (33.0-37.0) 11/05/17 07:59 RDW 12.8 % (11.5-14.5) 11/05/17 07:59 Plt Count 246 K/uL (130-400) 11/05/17 07:59 MPV 10.6 fL (7.2-11.7) 11/05/17 07:59 Neut % (Auto) 78.0 % (50.0-75.0) H 11/02/17 06:47 Lymph % (Auto) 15.0 % (20.0-40.0) L 11/02/17 06:47 Edmunds % (Auto) 6.0 % (0.0-10.0) 11/02/17 06:47 Eos % (Auto) 0.6 % (0.0-4.0) 11/02/17 06:47 Baso % (Auto) 0.4 % (0.0-2.0) 11/02/17 06:47 Neut # (Auto) 5.8 K/uL (1.8-7.0) 11/02/17 06:47 Lymph # (Auto) 1.1 K/uL (1.0-4.3) 11/02/17 06:47 Edmunds # (Auto) 0.4 K/uL (0.0-0.8) 11/02/17 06:47 Eos # (Auto) 0.0 K/uL (0.0-0.7) 11/02/17 06:47 Baso # (Auto) 0.0 K/uL (0.0-0.2) 11/02/17 06:47 Sodium 143 mmol/L (132-148) 11/05/17 07:59 Potassium 3.7 mmol/L (3.6-5.2) 11/05/17 07:59 Chloride 109 mmol/L (98-107) H 11/05/17 07:59 Carbon Dioxide 25 mmol/L (22-30) 11/05/17 07:59 Anion Gap 12 (10-20) 11/05/17 07:59 BUN 10 mg/dL (7-17) 11/05/17 07:59 Creatinine 1.7 mg/dL (0.7-1.2) H 11/05/17 07:59 Est GFR ( Amer) 36 11/05/17 07:59 Est GFR (Non-Af Amer) 30 11/05/17 07:59 Random Glucose 83 mg/dL (65-105) 11/05/17 07:59 Calcium 8.8 mg/dl (8.6-10.4) 11/05/17 07:59 Total Bilirubin 0.5 mg/dL (0.2-1.3) 11/02/17 06:47 AST 23 U/L (14-36) 11/02/17 06:47 ALT 21 U/L (9-52) 11/02/17 06:47 Alkaline Phosphatase 48 U/L (38-126) 11/02/17 06:47 Total Protein 6.3 g/dL (6.3-8.3) 11/02/17 06:47 Albumin 3.2 g/dL (3.5-5.0) L 11/02/17 06:47 Globulin 3.1 gm/dL (2.2-3.9) 11/02/17 06:47 Albumin/Globulin Ratio 1.0 (1.0-2.1) 11/02/17 06:47 Blood Type A NEGATIVE 11/01/17 12:17 Antibody Screen Positive 11/01/17 12:17 Antibody Identification Anti C Anti D 11/01/17 12:17 Antibody Identification Anti C Anti D 11/01/17 12:17 - Hospital Course Hospital Course: Patient was admitted with a 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 On 11/01/17 patient underwent an operation with surgeon Dr Vaz - "Rigid sigmoidoscopy with dilation, closure of loop ileostomy, and small bowel resection". The primary purpose of the surgery was closure of loop ileostomy. The patient was discharged on 11/05/17 after nothing that she was having flatus and having had multiple bowel movements. By discharge, her pain was controlled on PO tylenol and she was ambulating to the bathroom and able to get out of bed to chair with ease. Discharge Exam - Head Exam Head Exam: ATRAUMATIC, NORMAL INSPECTION, NORMOCEPHALIC - Additional Findings Additional findings: - Constitutional Appears: Non-toxic, No Acute Distress - Eye Exam Eye Exam: EOMI. absent: Scleral icterus - ENT Exam ENT Exam: Mucous Membranes Moist - Respiratory Exam Respiratory Exam: NORMAL BREATHING PATTERN. absent: Accessory Muscle Use, Respiratory Distress - GI/Abdominal Exam GI & Abdominal Exam: Soft. absent: Distended, Firm, Guarding, Rigid, Tenderness Additional comments: Incision RLQ. Incision c/D/I - Extremities Exam Extremities Exam: absent: Calf Tenderness - Neurological Exam Neurological Exam: Alert, Awake, Oriented x3 - Psychiatric Exam Psychiatric exam: Normal Affect - Skin Skin Exam: Intact, Warm Discharge Plan - Follow Up Plan Condition: GOOD Disposition: HOME/ ROUTINE Additional Instructions: Patient is medically stable for discharge. Please follow-up with Dr Vaz in his office in 1 week. Please take Tylenol 650mg every 6 hours only as needed for pain. If symptoms return please go seek the attention of a medical doctor. Referrals: Etienne Vaz Jr., MD [Staff Provider] -
--- NOTE | 2017-11-05 09:39 | CP.PCM.PN ---
Subjective - Date & Time of Evaluation Date of Evaluation: 11/05/17 Time of Evaluation: 09:35 - Subjective Subjective: Patient is afebrile. Had BMs yesterday. Pain at abdomen as expected. Patient is for discharge today. No vomiting, no LBM. Hgh is 8.3. Normal wbc. K is 3.7. Objective - Vital Signs/Intake and Output Vital Signs (last 24 hours): Temp Pulse Resp BP Pulse Ox 98.9 F 72 20 116/64 98 11/05/17 08:03 11/05/17 09:24 11/05/17 08:03 11/05/17 09:24 11/05/17 08:03 Intake and Output: 11/05/17 11/05/17 06:59 18:59 Intake Total 420 Balance 420 - Medications Medications: Current Medications Dorzolamide HCl (Trusopt) 0 ml OU HS [facility] Last Admin: 11/04/17 21:22 Dose: 1 drop Ferrous Sulfate (Feosol) 325 mg PO TID [facility] Last Admin: 11/05/17 09:24 Dose: 325 mg Heparin Sodium (Porcine) (Heparin) 5,000 units SC Q8 [facility] Last Admin: 11/05/17 06:09 Dose: 5,000 units Hydrochlorothiazide (Microzide) 12.5 mg PO DAILY [facility] Last Admin: 11/05/17 09:24 Dose: 12.5 mg Latanoprost (Xalatan Opht) 0 ml OU HS [facility] Last Admin: 11/04/17 21:23 Dose: 2.5 ml Losartan Potassium (Cozaar) 100 mg PO DAILY [facility] Last Admin: 11/05/17 09:24 Dose: 100 mg Ondansetron HCl (Zofran Inj) 4 mg IVP Q6 PRN PRN Reason: Nausea/Vomiting Rosuvastatin Calcium (Crestor) 10 mg PO HS [facility] Last Admin: 11/04/17 21:21 Dose: 10 mg Timolol Maleate (Timoptic 0.5% Ophth Soln) 0 drop OU BID [facility] Last Admin: 11/05/17 09:24 Dose: 1 drop - Labs Labs: 11/05/17 07:59 11/05/17 07:59 - Constitutional Appears: Well, Non-toxic, No Acute Distress - Head Exam Head Exam: ATRAUMATIC, NORMAL INSPECTION, NORMOCEPHALIC - Eye Exam Pupil Exam: PERRL - ENT Exam ENT Exam: Mucous Membranes Moist, Normal External Ear Exam - Neck Exam Neck Exam: Full ROM - Respiratory Exam Respiratory Exam: Clear to Ausculation Bilateral, NORMAL BREATHING PATTERN - Cardiovascular Exam Cardiovascular Exam: REGULAR RHYTHM, +S1, +S2 - GI/Abdominal Exam GI & Abdominal Exam: Tenderness, Normal Bowel Sounds - Rectal Exam Rectal Exam: Deferred - Extremities Exam Extremities Exam: Full ROM - Neurological Exam Neurological Exam: Alert, Awake, Oriented x3 - Psychiatric Exam Psychiatric exam: Normal Affect, Normal Mood - Skin Skin Exam: Dry, Intact, Warm Assessment and Plan - Assessment and Plan (Free Text) Assessment: Assessment: S/P reversal of ileostomy. Chronic renal insufficiency. Hyperlipidemia. Prediabetes. Plan: Plan: For discharge today. To see me in the office in 3 weeks..
[2017-11-05 15:41] VITALS: BP 137/70; PULSE 78; TEMP 99; O2SAT 99
== END 2017-11-05 16:24 | disposition home or self-care (01) | DRG 329 ==
LOC: C.SDS 07:44 → C.9S 14:00 → C.3T 21:23
PROVIDERS: ADMIT Surgery Vascular Surgery; ATTEND Surgery Vascular Surgery
PROC: 0DJD8ZZ Inspection of Lower Intestinal Tract, Via Natural or Artificial Opening Endoscopic (ICD-10-PCS; 2017-11-01)
PROC: 0DBB0ZZ Excision of Ileum, Open Approach (ICD-10-PCS; principal; 2017-11-01 09:45)
DX: Z43.2 Encounter for attention to ileostomy (principal); A41.9 Sepsis, unspecified organism; I13.0 Hypertensive heart and chronic kidney disease with heart failure and stage 1 through stage 4 chronic kidney disease, or unspecified chronic kidney disease; K62.4 Stenosis of anus and rectum; E78.5 Hyperlipidemia, unspecified; H40.9 Unspecified glaucoma; I50.9 Heart failure, unspecified; I25.10 Atherosclerotic heart disease of native coronary artery without angina pectoris; N18.9 Chronic kidney disease, unspecified; R73.03 Prediabetes; Z86.010 Personal history of colon polyps; Z87.891 Personal history of nicotine dependence

== ENCOUNTER 2018-07-18 06:19 | Day surgery (SDC) | payer MEDICARE, BC ==
[2018-06-27 12:00] VITALS: BMI 25.5
[2018-07-18] MEDS ORDERED: Propofol 10 mg/ml Inj (20 ML) ONE (07:49)
[2018-07-18] MEDS ORDERED: HYDROmorphone 0.5 mg/0.5 ml ISec IVP PRN (08:25)
--- NOTE | 2018-07-18 08:27 | PCM.SURG1 ---
Surgeon's Initial Post Op Note - Surgeon's Notes Surgeon: Dr. Vaz Marine Consultant: Marlyn PGY2 Type of Anesthesia: General LMA Anesthesia Administered By: Dr. Freidman Pre-Operative Diagnosis: Rectal lumen narrowing/stricture Operative Findings: see operative report. Able to progressively dialate to 60F Post-Operative Diagnosis: Same Operation Performed: Sigmoidoscopy. Rectal Dilatation Specimen/Specimens Removed: none Estimated Blood Loss: EBL {In ML}: 0 Blood Products Given: N/A Drains Used: No Drains Post-Op Condition: Good Date of Surgery/Procedure: 07/18/18 Time of Surgery/Procedure: 08:27
[2018-07-18 10:14] VITALS: RESP 18
[2018-07-18 11:00] VITALS: BP 155/62; PULSE 85; TEMP 97.5; O2SAT 99
--- NOTE | 2018-07-18 19:43 | OP ---
PROCEDURE DATE: 07/18/2018 PREOPERATIVE DIAGNOSIS: Rectal stricture, status post low anterior resection with EEA. PROCEDURE CARRIED OUT: Sigmoidoscopy and rectal dilatation using Gaines dilators up to a size 58, size 60 did not have a blunt tip and we did not attempt to pass this in. DESCRIPTION OF PROCEDURE: The patient was given general anesthesia. Rectal exam was carried out. The area of the anastomosis was just approximately 5 cm in size, was inspected and sigmoidoscope inserted. Air passed freely through this. We then started with a smaller sized Gaines dilator and progressively dilated up to size 58. I was then able to pass a finger through there. The reginaldo were palpable. There were no operative complications or problems. Blood loss to the procedure was none. OPERATION CARRIED OUT: Sigmoidoscopy and rectal dilatation up to a size 58 Gaines dilator. Etienne Vaz Jr., MD cc: MD Quin German MD
== END 2018-07-18 11:00 | disposition home or self-care (01) ==
LOC: C.SDS 06:19
PROVIDERS: ATTEND Surgery Vascular Surgery
DX: K62.4 Stenosis of anus and rectum (principal)
CPT/HCPCS: 45340; J2001; J2704; J3010

== ENCOUNTER 2018-08-21 21:29 | Emergency (ER) | payer MEDICARE, BC ==
[2018-08-21 21:53] VITALS: BMI 27.3
[2018-08-21] MEDS ORDERED: Atropine-Diphenoxylate 0.025-2.5 mg Tab PO STA (22:23)
--- NOTE | 2018-08-21 22:23 | C.PDOC ---
History Of Present Illness 72 year old female presents to the ER with vomiting, diarrhea, abdominal cramping for the past 2 days now mostly with multiple watery bowel movements and subjective fever. She took peptobismol at home. Past Hx of bowel resection with ileostomy. Patient is asymptomatic now. Time Seen by Provider: 08/21/18 22:08 Chief Complaint (Nursing): Abdominal Pain History Per: Patient History/Exam Limitations: no limitations Onset/Duration Of Symptoms: Days Current Symptoms Are (Timing): Still Present Quality Of Discomfort: Cramping Associated Symptoms: Fever (Subjective), Vomiting, Diarrhea Exacerbating Factors: None Alleviating Factors: None Recent travel outside of the [place]: No Abnormal Vaginal Bleeding: No Past Medical History Reviewed: Historical Data, Nursing Documentation, Vital Signs Vital Signs: Last Vital Signs Temp 97.6 F 08/21/18 21:47 Pulse 65 08/21/18 21:47 Resp 19 08/21/18 21:47 BP 222/77 H 08/21/18 21:47 Pulse Ox 100 08/21/18 21:47 - Medical History PMH: Anemia, CHF, Colonic Polyps, Diverticulitis, Gall Bladder Disease (S/P Lap GB), HTN, Hypercholesterolemia, Chronic Kidney Disease Surgical History: Cholecystectomy, Endoscopy - [facility] Procedures BYPASS ILEUM TO CUTANEOUS, OPEN APPROACH (04/21/17) DRAINAGE OF L PLEURAL CAV WITH DRAIN DEV, PERC APPROACH (04/21/17) DRAINAGE OF LEFT PLEURAL CAVITY, PERC APPROACH, DIAGN (04/21/17) EXCISION OF ILEUM, OPEN APPROACH (11/01/17) INSPECTION OF LOWER INTESTINAL TRACT, ENDO (11/01/17) RESECTION OF TRANSVERSE COLON, OPEN APPROACH (04/21/17) Family History: States: No Known Family Hx - Social History Hx Alcohol Use: Yes Hx Substance Use: No - Immunization History Hx Tetanus Toxoid Vaccination: No Hx Influenza Vaccination: Yes Hx Pneumococcal Vaccination: No Review Of Systems Except As Marked, All Systems Reviewed And Found Negative. Constitutional: Positive for: Fever (Subjective) Gastrointestinal: Positive for: Vomiting, Abdominal Pain, Diarrhea Physical Exam - Physical Exam Appears: Non-toxic Skin: Normal Color, Warm, Dry Head: Atraumatic, Normacephalic Eye(s): bilateral: Normal Inspection Oral Mucosa: Moist Chest: Symmetrical, No Tenderness Cardiovascular: Rhythm Regular Respiratory: Other (NARD) Gastrointestinal/Abdominal: Soft, No Tenderness, No Distention Back: No CVA Tenderness Neurological/Psych: Oriented x3, Normal Speech ED Course And Treatment - Laboratory Results Result Diagrams: 08/21/18 22:39 08/21/18 22:39 ECG: Interpreted By Me, Viewed By Me ECG Rhythm: Sinus Rhythm ECG Interpretation: No Changes From Prior (04/2017) Interpretation Of ECG: Positive delta waves. Rate From EC O2 Sat by Pulse Oximetry: 100 (Room air) Pulse Ox Interpretation: Normal Progress - Data Reviewed Data Reviewed: Lab, Diagnostic imaging, EKG, Old records Medical Decision Making Medical Decision Making: Plan: * Blood work * IV fluids * Bentyl * Lomotil Disposition Counseled Patient/Family Regarding: Studies Performed, Diagnosis, Need For Followup, Rx Given - Disposition Referrals: YOUR,PMD [Other] Disposition: HOME/ ROUTINE Disposition Time: 00:00 Condition: IMPROVED Prescriptions: Atropine/Diphenoxylate [Lonox 0.025 MG-2.5 MG] 1 tab PO TID #12 tab Dicyclomine [Bentyl] 20 mg PO TID PRN #12 tab PRN Reason: Pain Instructions: Diarrhea and Traveler's Diarrhea, Adult (DC) Forms: [employer] (Belarusian) - Clinical Impression Clinical Impression: Diarrhea, Abdominal cramping - Scribe Statement The provider has reviewed the documentation as recorded by the Scribsari Romo All medical record entries made by the Scribe were at my direction and personally dictated by me. I have reviewed the chart and agree that the record accurately reflects my personal performance of the history, physical exam, medical decision making, and the department course for this patient. I have also personally directed, reviewed, and agree with the discharge instructions and disposition.
[2018-08-21] MEDS ORDERED: Sodium Chloride 0.9% 500 ML IV ONE ×2 (22:30→22:42)
[2018-08-21] MEDS ORDERED: Atropine-Diphenoxylate 0.025-2.5 mg Tab ONE (22:42)
[2018-08-21 22:43] LABS: BASO % 0.3 % (0.0-2.0); EOS # 0.1 K/uL (0.0-0.7); EOS % 0.5 % (0.0-4.0); HEMOGLOBIN 11.8 g/dL (11.0-16.0); LYMPH # 2.8 K/uL (1.0-4.3); LYMPH % 20.3 % (20.0-40.0); MEAN CORPUSCULAR HEMOGLOBIN 28.5 pg (27.0-31.0); MEAN PLATELET VOLUME 12.1 fL (7.2-11.7); MONO # 0.8 K/uL (0.0-0.8); MONO % 5.7 % (0.0-10.0); NEUT % 73.2 % (50.0-75.0); RBC 4.15 Mil/uL (3.80-5.20); RED CELL DISTRIBUTION WIDTH 13.7 % (11.5-14.5); WHITE BLOOD COUNT 13.6 K/uL (4.8-10.8)
[2018-08-21 22:55] LABS: CALCIUM 9.8 mg/dl (8.6-10.4)
[2018-08-22 00:01] VITALS: BP 169/69; PULSE 73; RESP 16; TEMP 98.3; O2SAT 98
--- NOTE | 2018-08-23 23:53 | CARD ---
APPROVED REPORT Date of service: 08/21/2018 EKG Measurement Heart [id number] ID [id number] <Conclusion> Normal sinus rhythm [id number] Abnormal ECG
== END 2018-08-22 | disposition home or self-care (01) ==
LOC: C.ER 21:29
DX: R19.7 Diarrhea, unspecified (principal); R10.9 Unspecified abdominal pain
CPT/HCPCS: 80048; 85025; 93005; 99284; J7040